=== PATIENT | male | born 1960 | race Caucasian/White ===

== ENCOUNTER 2018-01-22 13:44 | Outpatient (CLI) | payer MEDICARE ==
--- NOTE | 2018-01-22 14:48 | ULT ---
ULTRASOUND WITH DOPPLER DUPLEX VENOUS LOWER EXTREMITY LEFT: HISTORY: 57-year-old male with left lower extremity pain and edema. TECHNIQUE: Color flow Doppler, spectral waveform analysis of pulsed Doppler, and perdomo-scale imaging with darwin edvin and augmentation, were used to evaluate the left common femoral, femoral, popliteal, posterior t ibial, and superficial femoral, veins; and the proximal portions of the profunda femoral and greater saphenous, veins. FINDINGS: There is normal compressibility, demonstration of blood flow by color Doppler and pulsed Doppler, and response to augmentation, in all interrogated veins. IMPRESSION: Negative. No deep vein thrombosis in the left lower extremity. jn[] POS: [facility]
== END 2018-01-22 13:45 | disposition home or self-care (01) ==
LOC: ULT 13:44
PROVIDERS: ATTEND Internal Medicine Critical Care Medicine
DX: I82.402 Acute embolism and thrombosis of unspecified deep veins of left lower extremity (principal); J44.9 Chronic obstructive pulmonary disease, unspecified; M79.605 Pain in left leg

== ENCOUNTER 2020-09-18 17:23 | Emergency (ER) | payer MEDICARE ==
--- NOTE | 2020-09-18 18:18 | RAD ---
RADIOGRAPH CHEST 1 VIEW: DATE: 09/18/2020 TIME: 6:06 PM HISTORY: 60-year-old male with hypoxia, cough, and chills COMPARISON: 07/16/2019 FINDINGS: Elevated right hemidiaphragm. Chronic infiltrate at right mid-lower lung zone. Chronic dense opacifie d location effacing the left lateral costophrenic angle. Prominent interstitial markings diffusely. No cardiomegaly. No pneumothorax. No major interval change . IMPRESSION: 1) chronic right-sided infiltrate 2) dense opacification of left lateral base, apparently chronic 3) chronically elevated right hemidiaphragm 4) no definite acute consolidation identified.
[2020-09-18 18:21] LABS: #Basophils 0.1 thou/uL (0.0-0.2); #Eosinphils 0.4 thou/uL (0.0-0.7); #Lymphocytes 1.5 thou/uL (1.20-3.40); #Monocytes 1.3 thou/uL (0.11-0.59); #Neutrophils 13.3 thou/uL (1.40-6.50); %Basophils 0.3 % (0.0-1.0); %Eosinophils 2.4 % (0.0-10.0); %Lymphocytes 9.2 % (21.0-51.0); %Monocytes 7.8 % (0.0-10.0); %Neutrophils 80.3 % (42.0-75.0); Mean Corpuscular HGB CONC 32.2 g/dL (32.0-36.0); Mean Corpuscular Hemoglobin 30.6 pg (27.0-31.0); Mean Corpuscular Volume 94.9 fL (78.0-98.0); Mean Platelet Volume 8.1 fL (7.4-10.4); Platelet Count 145 thou/uL (130-400); RBC Distribution Width 12.3 % (11.5-14.5); Red Blood Cell (RBC) Count 5.22 mill/uL (4.70-6.10); White Blood Cell (WBC) Count 16.5 thou/uL (4.8-10.8)
--- NOTE | 2020-09-18 18:27 | CT ---
CT BRAIN NONCONTRAST: DATE: 09/18/2020 HISTORY: 60-year-old male with altered mental status and headache FINDINGS: There is no evidence of acute intra-axial or extra-axial hemorrhage. There is no midline shift or any other mass effect. There is no extra-axial fluid collection. There is no evidence of obstructive hydrocephalus. Calvarium is intact. IMPRESSION: No acute intracranial findings.
[2020-09-18 19:15] LABS: Albumin 3.7 g/dL (3.5-5.0)
[2020-09-18 19:16] LABS: Chloride 99 mmol/L (98-107); Potassium 4.2 mmol/L (3.5-5.1); Sodium 135 mmol/L (136-145)
[2020-09-18 19:17] LABS: Calcium 8.8 mg/dL (7.8-10.44)
[2020-09-18 19:18] LABS: Globulin 3.4 g/dL (2.4-3.5); Glucose 103 mg/dL (70-105); Protein, Total 7.1 g/dL (6.0-8.3)
[2020-09-18 19:19] LABS: Anion Gap 11 mmol/L (10-20); Carbon Dioxide 29 mmol/L (22-29)
[2020-09-18 19:20] LABS: Alcohol Less than 10 mg/dL (Less than 10); Bilirubin, Total 1.1 mg/dL (0.2-1.2)
[2020-09-18 19:21] LABS: Alkaline Phosphatase 81 U/L (40-110); Calc. Creatinine Clearance 0 mL/min (70-130)
[2020-09-18 19:22] LABS: BUN (Urea Nitrogen) 9 mg/dL (8.4-25.7)
[2020-09-18 19:23] LABS: AST (SGOT) 17 U/L (5-34)
[2020-09-18 19:24] LABS: ALT (SGPT) Less than 7 U/L (8-55); Acetaminophen Less than 6.0 mcg/mL (10.0-30.0); CK (CPK) 33 U/L (30-200); Salicylate Less than 8.0 mg/dL (15.0-30.0)
[2020-09-18 20:10] LABS: SARS-CoV-2 NAA Rapid Test Not Detected (NotDetected)
== END 2020-09-18 21:23 | disposition home or self-care (01) ==
LOC: ERS 17:23
DX: B34.9 Viral infection, unspecified (principal); Z20.828 Contact with and (suspected) exposure to other viral communicable diseases; I10 Essential (primary) hypertension; J44.9 Chronic obstructive pulmonary disease, unspecified; E03.9 Hypothyroidism, unspecified; Z87.891 Personal history of nicotine dependence; Z79.899 Other long term (current) drug therapy
CPT/HCPCS: 0240U; 70450; 71045; 80053; 80307; 82550; 83605; 84484; 85025; 93005; 94760; 99285